=== PATIENT | female | born 1945 | race Caucasian/White ===

== ENCOUNTER → 2017-03-08 | Outpatient (CLI) | payer MEDICARE, BC ==
[~2017-03-08] MED LIST: AMOXIL (BID DO875 MG PO; ASPIRIN LO-DOSE81 MG PO; BIOTIN800 MCG PO; CALTRATE 600 +1 EAC1 PO; COZAAR100 MG PO; LASIX40 MG PO; MAGNESIUM250 M1 PO; NORCO 5-325 TA1 EACH PO; PROBIOTIC1 EAC2 PO; PROTONIX40 MG PO; TOPROL XL 5050 MG PO; VALACYCLOVIR1000 MG PO; VITAMIN B-12500 MCG PO; VITAMIN D1000 UNIT PO
== END | disposition disaster alternative care site (69) ==
LOC: GRAD 08:26
DX: M54.2 Cervicalgia (principal); M47.812 Spondylosis without myelopathy or radiculopathy, cervical region

== ENCOUNTER → 2017-03-16 | Outpatient (CLI) | payer MEDICARE, BC | END | disposition disaster alternative care site (69) | LOC: GOPD 03-08 11:00 | PROC: 3E0S33Z Introduction of Anti-inflammatory into Epidural Space, Percutaneous Approach (ICD-10-PCS; principal; 2017-03-16) | PROC: 3E0S3BZ Introduction of Anesthetic Agent into Epidural Space, Percutaneous Approach (ICD-10-PCS; 2017-03-16) | DX: M54.2 Cervicalgia (principal); M25.511 Pain in right shoulder; R20.0 Anesthesia of skin; R20.2 Paresthesia of skin | CPT/HCPCS: J1040 ==

== ENCOUNTER 2017-05-24 11:00 | Inpatient (IN) | payer MEDICARE, BC ==
[~2017-05-24] VITALS: Ht 162.6 cm; Wt 89.3 kg
--- NOTE | ~2017-05-24 | PUL ---
PATIENT'S NAME: ANGELINA HERNANDEZ [facility] AGE: 71 Y [address] ROOM: [address] [address] LOCATION: G3N ADMIT DATE: 06/08/2017 Pulmonary DISCHARGE DATE: 06/11/2017 FAMILY PHYSICIAN: Sarita Urena MD ATTENDING PHYSICIAN: Ashtyn Duggan NAME OF PROCEDURE: Overnight Pulse Oximetry DATE OF PROCEDURE: June 10, 2017 REASON FOR EXAM: Nocturnal hypoxemia RESULTS: The test was initially started on room air, and then patient was given 1 liters of oxygen which was titrated up to 2 liters. The recording time was 9 hours, 39 minutes, and 20 seconds, with a total valid sampling time of 9 hours, 27 minutes, and 44 seconds. Highest pulse was 98, lowest pulse was 56, with a mean pulse of 64. The highest SpO2 was 98%, lowest SpO2 was 73%, with a mean SpO2 of 89.6%. The three longest continuous times with saturation below 88% was 11 minutes and 56 seconds, 9 minutes and 5 minutes. The desaturation event index was 53.8. PHYSICIAN INTERPRETATION: The patient has evidence of significant nocturnal hypoxia and would qualify for supplemental oxygen as per Medicare criteria. However because of the severity of nocturnal hypoxia with an elevated desaturation event index a sleep study would be highly recommended at this time. MD JAMIE ROLON/norma /[id number] dtt: 06/22/17 1720 JOSE G MEENAKSHI dtd: 06/16/17 0827
--- NOTE | ~2017-05-24 | DS ---
PATIENT'S NAME: ANGELINA HERNANDEZ [facility] AGE: 71 Y [address] ROOM: [facility] [address] [place], [place] [address] LOCATION: G3 ADMIT DATE: 06/08/2017 Discharge Summary DISCHARGE DATE: 06/11/2017 FAMILY PHYSICIAN: Sarita Urena MD ATTENDING PHYSICIAN: Rylee Duggan REASON FOR ADMISSION: The patient is a 71-year-old female who was admitted electively for a prescheduled procedure. The patient presented with neck pain and tingling into her left arm and imaging studies showed severe foraminal stenosis with cervical spondylosis. TREATMENT RENDERED: The patient was taken to the operating room on the day of admission, June 08, 2017, and underwent anterior cervical diskectomy with allograft fusion and plating at C4-C5 and C5-C6, as well as decompression with fusion at C6-7. The patient's surgery was uncomplicated. Her postoperative course was uneventful. The preoperative symptoms resolved almost immediately after the surgery. During her stay in the hospital, the patient was found to be hypoxemic at nighttime. She had a trend ox oxygen test and was found to need home oxygen. This resulted in an extra day of hospitalization. The patient was found well enough to go home on June 11, 2017. She is being discharged home today with oxygen. She will be followed up in the Neurosurgery Clinic to check how she is doing. At this time, postoperative x- rays show satisfactory position of the bone graft, screws, and plates. FINAL DIAGNOSES: 1. Cervical spondylosis with radiculopathy. 2. Hypoxemia. RYLEE DUGGAN MD CNO/modl /[id number] CC: Sarita Urena MD d: 06/12/17 0112 t: 06/18/17 1700, DISCHARGE SUMMARY
--- NOTE | ~2017-05-24 | OR ---
PATIENT'S NAME: ANGELINA HERNANDEZ [facility] AGE: 71 Y [address] ROOM: [address] [place], [place] [address] LOCATION: [facility] ADMIT DATE: 06/08/2017 OR/Procedure Report DISCHARGE DATE: 06/11/2017 FAMILY PHYSICIAN: Sarita Urena MD ATTENDING PHYSICIAN: Ashtyn Mckenzie SURGEON: Ashtyn Mckenzie MD DIRECTOR OF ATHLETICS: Blanquita Richardson. DATE OF PROCEDURE: 06/08/2017 PREOPERATIVE DIAGNOSIS: Cervical spondylosis with radiculopathy. POSTOPERATIVE DIAGNOSIS: Cervical spondylosis with radiculopathy. PROCEDURES PERFORMED: 1. Anterior cervical diskectomy with decompression of neural elements and foraminotomy at C4-5. 2. Anterior cervical diskectomy with decompression of neural elements and foraminotomy at C5-C6. 3. Anterior cervical diskectomy with decompression of neural elements and foraminotomy at C6-7. 4. Morselized and structural allograft fusion at C4-5. 5. Morselized and structural allograft fusion at C5-6. 6. Morselized and structural allograft fusion at C6-7. 7. Use of anterior cervical plate system, [place] plate by Ezuza, from C4 to C6. 8. Use of operative microscope. ANESTHESIA: General. HISTORY: The patient is a 71-year-old female who presented with radiating pain into the left arm. She indicated that when she lay on the right side, her whole left hand would tingle, and she also had tingling in the left thumb, middle, and index fingers even when at rest. The patient had a cervical spine MRI which showed severe foraminal stenosis on the left side at C6-7, moderate to severe stenosis bilaterally at C5-6. and significant stenosis on the left side at C4-5. The patient did not respond to nonsurgical treatment. Surgery was, therefore, recommended. The above procedure, together with the benefits and risks, were explained to her, and with her consent, she was brought to the operating room for surgery. PROCEDURE IN DETAIL: In the operating room, the patient was placed in a supine position. Anesthesia was induced, and she was intubated. The incision line was marked out along the anterior border of the right sternomastoid muscle. The whole area was prepped and draped in a sterile fashion. Local anesthesia was infiltrated along the incision line. The incision was opened PATIENT'S NAME: ANGELINA HERNANDEZ [facility] AGE: 71 Y [address] ROOM: [id number] [place], [place] [address] LOCATION: [facility] ADMIT DATE: 06/08/2017 OR/Procedure Report DISCHARGE DATE: 06/11/2017 FAMILY PHYSICIAN: Sarita Urena MD ATTENDING PHYSICIAN: Ashtyn Mckenzie with a #10 blade, and the platysma was divided. The anterior border of the sternomastoid muscle was exposed. Dissection along the anterior border of the sternomastoid muscle revealed the omohyoid muscle. A plane was then developed between the sternomastoid and omohyoid muscles until we got to the anterior surface of the cervical spine. The [place] handheld retractors were used to facilitate visualization as the incision was deepened. The plane was medial to the carotid artery and lateral to the trachea and esophagus. On getting to the anterior surface of the spine, the longus colli muscles were dissected off the anterior surface of the spine, and Welding [employer]ician self-retaining retractors were attached. Intraoperative x-ray was obtained to verify our level. At this point, the microscope was brought in, and under microscopic vision, diskectomy was carried out at C4-5, C5-6, and C6-7. The disk at each level was incised with a 15 blade, and the pituitary rongeur was used to pull out disk material. The angled curette was then used to scrape out more disk which was again removed with a pituitary rongeur. [place] distraction pins were inserted on either side of each of the disk spaces, and the disk space was distracted to help see the posterior osteophytes. These osteophytes were removed along with the posterior longitudinal ligament, and this continued until the dura was completely decompressed and the foramina were also decompressed. This was done at all 3 levels; C4-5, C5-6, and C6-7. Once the decompression was completed, the adjacent endplates at C4-5, C5-6, and C6-7 were drilled down in preparation for fusion. Appropriate-sized pieces of allograft bone were then selected. These allograft bones were filled with demineralized bone matrix, i.e., morselized allografts. The structural and morselized allograft bone was then inserted into each disk space, and we had a very snug fit. An anterior cervical plate was used to support the fusion at C4-5 and C5-6. Two screws each were inserted into C4, C5, and C6. Another x-ray was obtained to confirm that the grafts, screws, and plates were in acceptable position. Irrigation was used to wash out the debris, and hemostasis was achieved. The incision was closed in layers using appropriate suture materials. A sterile dressing was applied. The patient's anesthesia was then reversed. She was extubated and taken to the recovery room to complete her recovery. I was present at and performed every aspect of this procedure, assisted at different stages by operating room nurses. There were no apparent intraoperative complications. Swabs, needles, and instruments were all accounted for at the end of the case. Estimated blood loss was less than 300 mL, and there was no reason for blood transfusion. I expect the patient to benefit from this PATIENT'S NAME: ANGELINA HERNANDEZ [facility] AGE: 71 Y [address] ROOM: [place] [address] LOCATION: [facility] ADMIT DATE: 06/08/2017 OR/Procedure Report DISCHARGE DATE: 06/11/2017 FAMILY PHYSICIAN: Sarita Urena MD ATTENDING PHYSICIAN: Ashtyn Mckenzie procedure. ASHTYN MCKENZIE MD CNO/modl /[id number] CC: Sarita Urena MD d: 06/11/17 1638 t: 06/11/17 2247, OPERATIVE SUMMARY
[~2017-05-24 11:00] MED LIST changes: -NORCO 5-325 TA1 EACH PO
[2017-06-08 07:11] LABS: INR - (THERAPEUTIC) 0.95 (0.92-1.07)
[2017-06-11] MEDS ORDERED: NORCO 5-325 TA1 EACH PO (13:52)
== END 2017-06-11 15:16 | disposition disaster alternative care site (69) | DRG 472 ==
LOC: G3N 06-08 06:10
PROVIDERS: ADMIT Neurological Surgery
PROC: 0RG20K0 Fusion of 2 or more Cervical Vertebral Joints with Nonautologous Tissue Substitute, Anterior Approach, Anterior Column, Open Approach (ICD-10-PCS; principal; 2017-06-08)
PROC: 01N10ZZ Release Cervical Nerve, Open Approach (ICD-10-PCS; 2017-06-08)
PROC: 0RB30ZZ Excision of Cervical Vertebral Disc, Open Approach (ICD-10-PCS; 2017-06-08)
DX: M47.892 Other spondylosis, cervical region (principal); B02.30 Zoster ocular disease, unspecified; Z99.81 Dependence on supplemental oxygen; I10 Essential (primary) hypertension; M54.12 Radiculopathy, cervical region; K21.9 Gastro-esophageal reflux disease without esophagitis; E03.9 Hypothyroidism, unspecified; R09.02 Hypoxemia
CPT/HCPCS: C1713; J0690; J1100; J1170; J1885; J2001; J2270; J2405; J2550; J7030